=== PATIENT | female | born 1960 | race Hispanic/Latino ===

== ENCOUNTER 2018-04-13 11:04 | Emergency (ER) | payer MEDICARE, MEDICAID ==
[2018-04-13] MEDS ORDERED: Bacitracin Zinc 1 Packet ONE (12:07)
--- NOTE | 2018-04-13 12:42 | RAD ---
LEFT KNEE FOUR VIEWS: History: Injury with pain. FINDINGS: Mild degenerative changes are noted. Joint spaces are preserved. Mild degenerative spurring is noted. Deformity of the proximal fibula suggests old fracture. No acute fracture identified. There is evide nce of a joint effusion. IMPRESSION: No acute fracture identified. Joint effusion is noted. There is deformity of head of the fibula sugge sting old healed fracture. Recommend clinical correlation. POS: [facility]
== END 2018-04-13 12:10 | disposition home or self-care (01) ==
LOC: SCSER 11:04
DX: S80.02XA Contusion of left knee, initial encounter (principal); E11.9 Type 2 diabetes mellitus without complications; E78.5 Hyperlipidemia, unspecified; I10 Essential (primary) hypertension; F41.9 Anxiety disorder, unspecified; F32.9 Major depressive disorder, single episode, unspecified; Z79.899 Other long term (current) drug therapy; Z79.4 Long term (current) use of insulin; W19.XXXA Unspecified fall, initial encounter
CPT/HCPCS: 80053; 82607; 82746; 84425; 84443; 84446; 85025; 85652; 86038; 86140; 86225

== ENCOUNTER → 2018-05-10 | Day surgery (SDC) | payer MEDICARE, MEDICAID ==
[2018-05-10 10:01] LABS: CSF Source CSF; Clarity Hazy (Clear); RBC Count - Manual 1375 /cumm (None Seen); Tube # 4; WBC/NonHematics Count - Manual 1 /cumm (0-5)
[2018-05-10 10:03] LABS: CSF, Glucose 50 mg/dl (40-70); CSF, Protein 25 mg/dL (15-40)
[2018-05-10 10:42] LABS: Color Of CSF Supernatant COLORLESS (Colorless); Tube # 2; Unspun CSF Color PINK (Colorless)
--- NOTE | 2018-05-10 10:49 | RAD ---
LUMBAR PUNCTURE WITH FLUOROSCOPIC GUIDANCE: 05/10/2018 HISTORY: A 57-year-old female with possible multiple sclerosis. COMPARISON: None. FINDINGS: Informed consent obtained prior to the procedure. Frontal and lateral imaging of the lumbar spine de monstrates no acute fracture. Clips in the right upper quadrant suggest a prior cholecystectomy. The patient was placed on the fluoroscopic table in the oblique prone position, and the skin overlyin g the lumbar spine was prepped and draped in the normal sterile fashion. With intermittent fluoroscopic guidance, a 22 gauge spinal needle was advanced into the thecal sac, a t the L3-L4 level, and removal of the stylet yielded clear CSF. A total of approximately 9 mL was re moved. The opening pressure was approximately 11-12 cm of water. The patient tolerated the procedure well. IMPRESSION: Successful lumbar puncture with fluoroscopic guidance. POS: [facility]
[2018-05-10 10:58] VITALS: TEMP 97.5
[2018-05-10 14:36] LABS: Ref Lab Test Ordered ENC1
== END ==
LOC: RAD 06:37
PROVIDERS: ATTEND Psychiatry & Neurology Neurology
PROC: 009Y3ZZ Drainage of Lumbar Spinal Cord, Percutaneous Approach (ICD-10-PCS; principal; 2018-05-10)
DX: R41.89 Other symptoms and signs involving cognitive functions and awareness (principal); R26.9 Unspecified abnormalities of gait and mobility; E11.9 Type 2 diabetes mellitus without complications; I10 Essential (primary) hypertension; Z79.4 Long term (current) use of insulin; Z79.899 Other long term (current) drug therapy
CPT/HCPCS: 62270; 82040; 82042; 82784; 82945; 83916; 84157; 86592; 87070; 87205; 89051

== ENCOUNTER 2018-06-07 08:22 | Outpatient (CLI) | payer MEDICARE, MEDICAID ==
--- NOTE | 2018-06-07 12:25 | CT ---
CT OF THE CHEST WITHOUT CONTRAST CT OF THE ABDOMEN AND PELVIS WITHOUT CONTRAST: Indication: Concern for malignancy; history of abnormalities found within spinal fluid from a recent spinal tap. The patient reports falling a lot lately. Brain lesions reported supposedly on outside MR examination of the brain. Technique: Multiple CT images were obtained in the chest, abdomen, and pelvis without IV contrast. Th e lack of IV contrast limits evaluation for malignancy. FINDINGS: There are scattered areas of ground glass opacity involving both lungs. No definitely pathologically enlarged mediastinal lymph nodes are evident. The lack of IV contrast li mits evaluation for hilar lymphadenopathy. No axillary lymphadenopathy is evident. There are mild vascular calcifications involving the thoracic aorta and coronal arteries. There is a small hiatal hernia. The gallbladder is surgically absent. Lack of IV contrast limits evaluation for malignancy of the solid organs of the abdomen and pelvis. N o definite focal mass is evident. No hydronephrosis is demonstrated. There are mild vascular calcifications involving the abdominal aorta. There is a moderate amount of stool within the rectum. There is a surgical clip displaced within the retrovesicular space. There is scattered colonic diverticula. Small bowel is of normal caliber. There are a few shotty appearing lymph nodes seen within the central mesentery with some mild mesente oswaldo stranding. No free fluid is demonstrated. NO definite acute osseous abnormality is evident. IMPRESSION: 1. No definite CT evidence to suggest the presence of metastatic disease or malignancy within the joe st, abdomen, or pelvis. However, there are limitations of the examination as detailed above. 2. Scattered ground glass opacities within both lungs is likely related to subsegmental volume loss. 3. Colonic diverticulosis. 4. Cholecystectomy. 5. Displaced cholecystectomy clips suspected within the retrovesicular space of the pelvis. POS: [facility]
== END 2018-06-07 08:23 | disposition home or self-care (01) ==
LOC: RAD-BREN 08:22
PROVIDERS: ATTEND Psychiatry & Neurology Neurology
DX: C80.1 Malignant (primary) neoplasm, unspecified (principal); R91.8 Other nonspecific abnormal finding of lung field; K57.30 Diverticulosis of large intestine without perforation or abscess without bleeding; Z90.49 Acquired absence of other specified parts of digestive tract
CPT/HCPCS: 71250; 74176; 74177

== ENCOUNTER 2018-06-28 13:23 | Inpatient (IN) | payer MEDICARE, MEDICAID ==
[2018-06-28 16:46] VITALS: BMI 44.8
--- NOTE | 2018-06-28 17:26 | PET ---
RADIONUCLIDE PET SCAN WITH CT ATTENUATION CORRECTION 06/28/18 HISTORY: Abnormal CSF. Abnormal MRI. Evaluate for malignancy. FINDINGS: Physiologic uptake of radiotracer is present throughout the enteric system and along each urinary tra ct. Associated with the superficial subcutaneous tissues, favored to be subdermal, at the right axilla wh ere the superolateral fold of the right breast abuts the right axilla, a focus of increased radiotrac er uptake shows a maximum SUV of 5.2. CT images show a soft tissue oval nodule associated with the de ep dermal tissues, superficial subcutaneous tissues. At the level of the thyroid isthmus, a focus of increased radiotracer uptake shows a maximum SUV of 4 .0. No other abnormal areas of increased radiotracer uptake are evident. IMPRESSION: No reliable scintigraphic evidence of neoplastic disease. Small focus of hypermetabolic activity associated with the thyroid isthmus. Please consider thyroid s onogram for evaluation of possible thyroid mass at the isthmus. Activity associated with the superficial subcutaneous tissues at the right axillary, mammary fold is favored to be related to an inflammatory skin lesion such as a sebaceous cyst. This does not have the appearance of a breast tissue lesion. Please correlate with clinical findings at the right axilla. POS: [facility]
[2018-06-28] MEDS ORDERED: Dextrose 50% Abboject 50 ML SYRINGE SLOW IVP PRN (17:56)
[2018-06-28] MEDS ORDERED: Dextrose 5% in Water 1,000 ML IV PRN (17:56)
[2018-06-28] MEDS: Sodium Chloride 0.9% 500 ML IVPB SCH (21:36)
[2018-06-28] MEDS: Acetaminophen 500 MG TAB PO SCH (21:41)
[2018-06-28] MEDS: Insulin Regular 300 UNITS/3 ML VIAL SC PRN (21:42)
[2018-06-28] MEDS: diphenhydrAMINE 50 MG/ML VIAL IVP SCH (21:42)
[2018-06-28] MEDS: Enoxaparin Sodium 40 MG/0.4 ML SYRINGE SC SCH (21:42)
[2018-06-28] MEDS: OCTAGAM 10% 10 GM, OCTAGAM 10% 20 GM in Admixture Fee 1 EACH IVPB SCH (22:28)
[2018-06-29] MEDS: Sodium Chloride 0.9% 500 ML IVPB SCH ×2 (01:13→20:19)
[2018-06-29] MEDS: Insulin Regular 300 UNITS/3 ML VIAL SC PRN (06:31)
[2018-06-29 10:23] LABS: #Eosinphils 0.1 thou/uL (0.0-0.7); #Lymphocytes 1.2 thou/uL (1.20-3.40); #Monocytes 0.3 thou/uL (0.11-0.59); #Neutrophils 3.9 thou/uL (1.40-6.50); %Basophils 0.6 % (0.0-1.0); %Eosinophils 2.6 % (0.0-10.0); %Lymphocytes 21.6 % (21.0-51.0); %Monocytes 5.5 % (0.0-10.0); %Neutrophils 69.8 % (42.0-75.0); Hemoglobin 13.4 g/dL (12.0-16.0); Mean Corpuscular Hemoglobin 32.5 pg (27.0-31.0); Mean Corpuscular Volume 95.7 fL (78.0-98.0); Mean Platelet Volume 7.9 fL (7.4-10.4); Platelet Count 209 thou/uL (130-400); RBC Distribution Width 13.4 % (11.5-14.5); Red Blood Cell (RBC) Count 4.13 mill/uL (4.20-5.40); White Blood Cell (WBC) Count 5.6 thou/uL (4.8-10.8)
[2018-06-29 10:49] LABS: ALT (SGPT) 13 U/L (8-55); AST (SGOT) 12 U/L (5-34); Albumin 3.6 g/dL (3.5-5.0); Alkaline Phosphatase 116 U/L (40-150); Anion Gap 13 mmol/L (10-20); BUN (Urea Nitrogen) 11 mg/dL (9.8-20.1); Bilirubin, Total 0.3 mg/dL (0.2-1.2); Calc. Creatinine Clearance 135 mL/min (70-130); Calcium 9.4 mg/dL (7.8-10.44); Carbon Dioxide 27 mmol/L (22-29); Chloride 102 mmol/L (98-107); Estimated GFR-MDRD 71; Globulin 5.1 g/dL (2.4-3.5); Glucose 110 mg/dL (70-105); Potassium 3.8 mmol/L (3.5-5.1); Protein, Total 8.7 g/dL (6.0-8.3); Sodium 138 mmol/L (136-145)
[2018-06-29] MEDS ORDERED: Lorazepam 1 MG TAB PO PRN (11:12)
[2018-06-29] MEDS: HumaLOG 300 UNITS/3 ML VIAL SC SCH ×2 (11:24→17:20)
[2018-06-29] MEDS: OXcarbazepine 300 MG TAB PO SCH ×2 (11:30→20:23)
[2018-06-29] MEDS ORDERED: Amlodipine 10 MG TAB PO SCH (11:30)
[2018-06-29] MEDS ORDERED: Aspirin 325 MG TAB PO SCH (11:30)
[2018-06-29] MEDS ORDERED: Lisinopril 20 MG TAB PO SCH (11:30)
[2018-06-29] MEDS: Pioglitazone HCl 15 MG TAB PO SCH (11:30)
[2018-06-29] MEDS: TROSPIUM 20 MG TABLET PO SCH ×2 (11:31→20:24)
--- NOTE | 2018-06-29 12:14 | HP ---
DATE OF ADMISSION: 06/28/2018 REASON FOR ADMISSION: Autoimmune encephalopathy treatment. HISTORY OF PRESENT ILLNESS: Ms. Dewey is a pleasant 58-year-old female who has been admitte d for treatment for autoimmune encephalopathy. The patient was initially referred to me on 8 for evaluation of memory difficulties and gait abnormality. At that time, the patient's daughter mickie alfaro mentioned that she was having difficulty with her memory starting in 09/2017. During that time, er blood pressure and diabetes were getting uncontrolled. During that time, when daughter was checki ng on her medications, she found that the patient was not taking medications as prescribed and when taurus lindsey asked the patient whether she took them, she did not realize that she has not been taking any of the medications. She also noticed that she would not remember conversations. She would have dif ficulty with performing simple activities around the house. She required help with most of her activ ities of daily living. This has gradually gotten worse over time to the point that she was forgettin g to brush her teeth, forgetting to take shower and forgetting to eat. She had difficulty with follo wing conversations and forgetting what she wants to say. She was having difficulty with finding word s. She was speaking in both [place] and Palestinian in the past, but now she primarily speaks only Spani sh. She has also noted increasing episodes of mood swings and hallucinations where she was talking t o her father who several years ago. She tends to get agitated at times and tends to be worried about everything. She has also noticed difficulty with her gait imbalance over the several months. She would stagger and stumble while walking. She has fell on several occasions. At that time, she h ad an MRI brain done as outpatient, which had shown T2 flair white matter apparent hyperintensity as well as diffusion restriction in both cerebral hemispheres. For this reason, I had obtained autoimmu ne encephalopathy panel from [facility], which did come back positive for CASPR2 IgG antibody. I newell d received a phone call from [facility] Autoimmune Neurology fellow, Dr. Yudith Kennedy, who report ed that this is consistent with autoimmune encephalopathy. She recommended to have PET scan done to rule out malignancy as well as to start her on a trial of either IVIG or IV pulse steroids. Due to er condition of uncontrolled diabetes, she decided to opt for IVIG treatment. She is now being admit vicky for this IVIG treatment as recommended. PAST MEDICAL HISTORY: Significant for hypertension, diabetes, hyperlipidemia, depression. PAST SURGICAL HISTORY: Significant for cholecystectomy and tubal ligation. FAMILY HISTORY: Significant for heart disease, hypertension and diabetes. SOCIAL HISTORY: She denies smoking, alcohol use or illicit drug use. She is currently disabled. Josesito darling is single and has 2 children. She currently lives with her daughter. CURRENT MEDICATIONS: Include amlodipine 10 mg once a day, Crestor 10 mg once a day, insulin ____ mL solution subcutaneously, lisinopril 40 mg 1 tablet daily, lorazepam 1 mg at bedtime, Trileptal 300 mg twice a day, perphenazine 8 mg once a day, pioglitazone 30 mg once a day, sertraline 100 mg once a d ay, solifenacin 5 mg once a day, temazepam 30 mg at bedtime. ALLERGIES: Include METFORMIN from which she had developed vomiting as a side effect. REVIEW OF SYSTEMS: As mentioned in the HPI, otherwise negative. PHYSICAL EXAMINATION: VITAL SIGNS: Blood pressure of 189/79, pulse of 82, temperature of 97.4, respirations of 20, O2 sats of 95% on room air. GENERAL: Well-developed, well-nourished female, in no apparent distress. RESPIRATORY: Clear to auscultation bilaterally. CARDIOVASCULAR: Regular rate and rhythm. NEUROLOGIC: Mental status: The patient is awake, alert and oriented x1. Speech and language: Flue nt speech. Cranial nerves: Pupils are 3 mm and reactive. Visual maier are intact. External muscl es are intact. No nystagmus is noted. No ptosis noted. Sensation is intact and symmetrical. Face is symmetric with normal facial strength. Tongue and uvula are midline. Motor exam showed normal to ne and bulk with 4+/5 strength in both upper and lower extremities. Sensory: Sensation is diminishe d in both upper and lower extremities in distal to proximal gradient. Deep tendon reflexes, brisk re flexes in all 4 extremities. Babinski: Plantar responses equivocal bilaterally. Romberg is positiv e. Gait is wide based, shuffling gait. Coordination intact to [id number] and finger tapping bilaterally. IMPRESSION: 1. Autoimmune encephalopathy. 2. Gait abnormality, likely due to autoimmune encephalopathy. 3. Cognitive impairment, due to autoimmune encephalopathy. ASSESSMENT AND PLAN: Ms. Dewey is a pleasant 58-year-old female who presented with the sig nificant decline in her cognition as well as gait imbalance difficulty. She had an MRI done, which h ad shown T2 flair white matter hyperintensities in both cerebral hemispheres with restricted diffusio n in both cerebral hemispheres. Her blood work did show positive CASPR2 IgG antibody consistent with the autoimmune encephalopathy. She had CT chest, abdomen and pelvis done as outpatient, which had n ot shown any malignancy. I had done PET scan prior to this admission, which also did not show any si gn of malignancy. It did show small focus of ____ abnormal activity in the thyroid isthmus for which radiologist has recommended thyroid ultrasound. I will obtain a thyroid ultrasound as recommended b y radiologist. She is being started on IVIG treatment. She will be started on IVIG 400 mg/kg to be infused over 8 hours daily for a total of 3 doses. She will be premedicated with Tylenol 500 mg and Benadryl 25 mg IV prior to each infusion. She will also be given 500 mL normal saline before and aft er each infusion. I will consult Physical Therapy and Occupational Therapy for gait training and bobby ab evaluation. She will be placed on DVT prophylaxis with Lovenox 40 mg subcu daily. Once the patie nt is completed with 3 doses of IVIG without any complication, she will be discharged to home. She w ill have outpatient home based infusion setup to be done once every 2 weeks.
--- NOTE | 2018-06-29 13:57 | PQF ---
CLINICAL DOCUMENTATION IMPROVEMENT CLARIFICATION FORM: ICD-10 Updated PLEASE DO AN ADDENDUM TO THE PROGRESS NOTE WITH ANY DOCUMENTATION UPDATES OR ADDITIONS AND CARRY THROUGH TO DC SUMMARY. THANK YOU. DATE: 06/29 ATTN: DR. MAIDA CLEARY Please exercise your independent, professional judgment in responding to the clarification form. Clinical indicators are provided on the bottom of this form for your review. Please check appropriate box(s): BMI > 40 with associated diagnosis of: (check one) [ ] Morbid (Severe) Obesity [ ] Due to excess calories [ ] Obesity [ ] Other diagnosis [ ] Unable to determine For continuity of documentation, please document condition throughout progress notes and discharge summary. Thank You. BMI < 19 Under weight 19 - 24.9 Healthy 25.0 - 29.9 Slightly Overweight 30.0 - 34.9 Obese 35.0 - 39.9 Severely Obese 40.0 and Over Morbidly Obese CLINICAL INDICATORS - SIGNS / SYMPTOMS / LABS BMI: 45.6 RISK FACTORS: DM II HTN TREATMENTS: ASSISTANCE OF [facility] STAFF FOR ADL'S, POSITIONING IN BED, TRANSFERS, ETC EXTRA LARGE EQUIPMENT - WC, BED, BP CUFF THANK YOU! Moraima (This form is maintained as a part of the permanent medical record) 2014 [employer]. All Rights Reserved Moraima Ramirez RN, BSN [email or web address] Office: [phone] [facility] HOSPITALSreedhar
--- NOTE | 2018-06-29 15:06 | ULT ---
THYROID ULTRASOUND: HISTORY: Thyroid abnormality. COMPARISON: FINDINGS: measures 1.5 cm in AP dimension. Right lobe measures 5.3 x 3.1 x 2.2 cm. Left lobe measures 4.6 x 3 x 2.3 cm. Within the isthmus is a solid, mixed hyperechoic and hypoechoic mass, which is wi nory than tall, with somewhat ill defined margins without associated calcifications. TI-RADS category 4-Moderately suspicious. Given the size of size of 1.3 cm, followup in six months to one year is recommended. IMPRESSION: TI-RADS 4 nodule in the isthmus. Follow up in six months to one year is recommended. POS: [facility]
[2018-06-29] MEDS ORDERED: Acetaminophen 500 MG TAB PO PRN (20:15)
[2018-06-29] MEDS ORDERED: hydrALAZINE 20 MG/ML VIAL SLOW IVP PRN (20:15)
[2018-06-29] MEDS: Acetaminophen 500 MG TAB PO SCH (20:20)
[2018-06-29] MEDS: diphenhydrAMINE 50 MG/ML VIAL IVP SCH (20:21)
[2018-06-29] MEDS: Enoxaparin Sodium 40 MG/0.4 ML SYRINGE SC SCH (20:21)
[2018-06-29] MEDS: Rosuvastatin 5 MG TAB PO SCH (20:23)
[2018-06-29] MEDS: Perphenazine 2 MG TAB PO SCH (20:23)
[2018-06-29] MEDS: traZODone HCl 150 MG TAB PO SCH (20:24)
[2018-06-29] MEDS: OCTAGAM 10% 10 GM, OCTAGAM 10% 20 GM in Admixture Fee 1 EACH IVPB SCH (21:24)
--- NOTE | 2018-06-29 23:30 | PRG ---
DATE OF SERVICE: 06/29/2018 SUBJECTIVE: Ms. Dewey is a pleasant 58-year-old female admitted for IVIG treatment for auto immune encephalopathy. She has received 1 dose of IVIG. She has tolerated the IVIG well without any complications. She did have mild headache with elevation in blood pressure last night; however, anurag t has now been resolved. She did not require any IV p.r.n., antihypertensive medication at that time . PHYSICAL EXAMINATION: VITAL SIGNS: Blood pressure of 183/80, pulse of 77, temperature of 99, respirations of 18, O2 sats o f 92% on room air. GENERAL: Well-developed, well-nourished female in no apparent distress. RESPIRATORY: Clear to auscultation bilaterally. CARDIOVASCULAR: Regular rate and rhythm. NEUROLOGIC: Neurological exam essentially unchanged. DIAGNOSTIC STUDIES: Thyroid ultrasound results were reviewed, which showed 4 nodules in the isthmus of the thyroid reviewed (01:49) recommended to repeating the thyroid ultrasound in 6 months. LABORATORY DATA: Labs are reviewed, which included CBC, CMP, TSH, which is all essentially normal ex cept glucose of 134. IMPRESSION: 1. Autoimmune encephalopathy. 2. Gait abnormality, due to #1. 3. Cognitive impairment, due to #1. Ms. Dewey is a pleasant 58-year-old female who was admitted for treatment with IVIG for auto immune encephalopathy. She has tolerated the first dose of IVIG well without any complications. She did have mild elevation in the blood pressure for which I will start her on hydralazine 5 mg IV q.4 hours p.r.n. for systolic blood pressure greater than 180. She will be given Tylenol 500 mg q.4 hour s p.r.n. for headache. Patient will continue with PT, OT, and she will have a second and third round of IVIG today and tomorrow, respectively.
[2018-06-30] MEDS: Sodium Chloride 0.9% 500 ML IVPB SCH ×2 (05:30→20:06)
[2018-06-30] MEDS: OXcarbazepine 300 MG TAB PO SCH ×2 (09:26→20:07)
[2018-06-30] MEDS: TROSPIUM 20 MG TABLET PO SCH ×2 (09:26→20:06)
[2018-06-30] MEDS: Pioglitazone HCl 15 MG TAB PO SCH (09:26)
[2018-06-30] MEDS: HumaLOG 300 UNITS/3 ML VIAL SC SCH ×3 (09:26→17:23)
[2018-06-30] MEDS: Aspirin 325 MG TAB PO SCH (09:27)
[2018-06-30] MEDS: Amlodipine 10 MG TAB PO SCH (09:27)
[2018-06-30] MEDS: Lisinopril 20 MG TAB PO SCH (09:27)
[2018-06-30] MEDS: Insulin Regular 300 UNITS/3 ML VIAL SC PRN ×2 (11:38→15:46)
[2018-06-30] MEDS: diphenhydrAMINE 50 MG/ML VIAL IVP SCH (20:05)
[2018-06-30] MEDS: Acetaminophen 500 MG TAB PO SCH (20:05)
[2018-06-30] MEDS: Perphenazine 2 MG TAB PO SCH (20:07)
[2018-06-30] MEDS: traZODone HCl 150 MG TAB PO SCH (20:07)
[2018-06-30] MEDS: Rosuvastatin 5 MG TAB PO SCH (20:07)
[2018-06-30] MEDS: Enoxaparin Sodium 40 MG/0.4 ML SYRINGE SC SCH (20:16)
[2018-06-30] MEDS: OCTAGAM 10% 10 GM, OCTAGAM 10% 20 GM in Admixture Fee 1 EACH IVPB SCH (21:58)
[2018-07-01] MEDS: Sodium Chloride 0.9% 500 ML IVPB SCH (05:20)
[2018-07-01 07:42] VITALS: BP 148/83; TEMP 98.3
[2018-07-01] MEDS: HumaLOG 300 UNITS/3 ML VIAL SC SCH ×3 (08:10→19:27)
[2018-07-01] MEDS: TROSPIUM 20 MG TABLET PO SCH (08:11)
[2018-07-01] MEDS: OXcarbazepine 300 MG TAB PO SCH (08:11)
[2018-07-01] MEDS: Amlodipine 10 MG TAB PO SCH (08:11)
[2018-07-01] MEDS: Pioglitazone HCl 15 MG TAB PO SCH (08:12)
[2018-07-01] MEDS: Aspirin 325 MG TAB PO SCH (08:12)
[2018-07-01] MEDS: Lisinopril 20 MG TAB PO SCH (08:12)
== END 2018-07-01 18:16 | disposition home or self-care (01) | DRG 72 ==
LOC: PET 13:23 → ONC 15:52
PROVIDERS: ADMIT Psychiatry & Neurology Neurology; ATTEND Psychiatry & Neurology Neurology
DX: G93.49 Other encephalopathy (principal); C80.1 Malignant (primary) neoplasm, unspecified; E11.9 Type 2 diabetes mellitus without complications; Z79.4 Long term (current) use of insulin; I10 Essential (primary) hypertension; E78.5 Hyperlipidemia, unspecified; F32.9 Major depressive disorder, single episode, unspecified; G31.84 Mild cognitive impairment of uncertain or unknown etiology
CPT/HCPCS: 36415; 36416; 76536; 78815; 80053; 84443; 85025; A4216; A9552; G8978-GP-CL; G8979-GP-CJ; G8987-GO-CM; G8988-GO-CJ; J0360; J1200; J1568; J1650; J1815; J7050; Q0175

== ENCOUNTER 2019-11-02 00:45 | Inpatient (IN) | payer MEDICARE, MEDICAID ==
[2019-11-02] MEDS ORDERED: Acetaminophen 325 MG TAB PO PRN (04:05)
[2019-11-02] MEDS ORDERED: Ondansetron ODT 4 MG TAB SL PRN (04:05)
[2019-11-02] MEDS ORDERED: Ondansetron PF 4 MG/2 ML Vial IVP PRN ×2 (04:05→08:42)
[2019-11-02 04:07] VITALS: BMI 43.9
[2019-11-02] MEDS ORDERED: Sodium Chloride 0.9% 1,000 ML IV SCH (04:15)
[2019-11-02] MEDS ORDERED: Lorazepam 1 MG TAB PO PRN (08:39)
[2019-11-02] MEDS ORDERED: HYDROcodone/Acetaminophen 7.5/325 mg Tablet PO PRN (08:42)
[2019-11-02] MEDS ORDERED: HYDROcodone/Acetaminophen 5/325 mg Tablet PO PRN (08:42)
[2019-11-02] MEDS ORDERED: Ondansetron ODT 4 MG TAB PO PRN (08:42)
[2019-11-02] MEDS ORDERED: Dextrose 5% in Water 1,000 ML IV PRN (08:46)
[2019-11-02] MEDS ORDERED: Dextrose 50% Abboject 50 ML SYRINGE SLOW IVP PRN (08:46)
[2019-11-02] MEDS ORDERED: Docusate 100 MG CAP PO PRN (08:47)
[2019-11-02] MEDS ORDERED: Benzonatate 100 MG CAP PO PRN (08:47)
[2019-11-02] MEDS ORDERED: diphenhydrAMINE 25 MG CAP PO PRN (08:47)
[2019-11-02] MEDS ORDERED: Labetalol HCl 100 MG/20 ML VIAL SLOW IVP PRN (08:47)
[2019-11-02] MEDS ORDERED: Amlodipine 10 MG TAB PO SCH (09:00)
[2019-11-02] MEDS ORDERED: Non-Formulary Item 1 EACH (Lisinopril [Lisinopril] 1 TAB) PO SCH (09:00)
[2019-11-02] MEDS ORDERED: OXcarbazepine 300 MG TAB PO SCH ×2 (09:00)
[2019-11-02] MEDS: Aspirin 325 MG TAB PO SCH (09:36)
[2019-11-02] MEDS: Lisinopril 20 MG TAB PO SCH (09:36)
[2019-11-02] MEDS: Famotidine 20 MG TAB PO SCH ×2 (09:37→22:06)
[2019-11-02 10:20] LABS: Anion Gap 14 mmol/L (10-20); BUN (Urea Nitrogen) 21 mg/dL (9.8-20.1); Calc. Creatinine Clearance 88 mL/min (70-130); Calcium 8.4 mg/dL (7.8-10.44); Carbon Dioxide 21 mmol/L (22-29); Chloride 104 mmol/L (98-107); Estimated GFR-MDRD 46; Glucose 203 mg/dL (70-105); Potassium 4.2 mmol/L (3.5-5.1); Sodium 135 mmol/L (136-145)
[2019-11-02] MEDS ORDERED: FLU VACC QS2019-20(6MOS UP)/PF 60 MCG/0.5 ML SYRINGE IM ONE (11:00)
[2019-11-02 11:31] LABS: Band 10 % (5-11); Lymphocytes 13 % (21-51); MDiff Complete? YES; Mean Corpuscular HGB CONC 33.2 g/dL (32.0-36.0); Mean Corpuscular Hemoglobin 31.5 pg (27.0-31.0); Mean Corpuscular Volume 94.9 fL (78.0-98.0); Mean Platelet Volume 9.3 fL (7.4-10.4); Monocytes 1 % (0-10); Neutrophil 76 % (42-75); Platelet Count 226 thou/uL (130-400); RBC Morphology Normal; Red Blood Cell (RBC) Count 4.14 mill/uL (4.20-5.40); White Blood Cell (WBC) Count 18.8 thou/uL (4.8-10.8)
[2019-11-02] MEDS: cefTRIAXone\\ROCEPHIN 2 GM in Sodium Chloride 0.9% 100 ML IVPB SCH (12:28)
[2019-11-02] MEDS: HumaLOG 300 UNITS/3 ML VIAL SC PRN ×2 (12:30→18:58)
--- NOTE | 2019-11-02 13:57 | MRI ---
MRI BRAIN WITHOUT CONTRAST: HISTORY: Vertigo, CVA symptoms FINDINGS: A couple of tiny foci of restricted diffusion is seen in the right cerebral hemisphere involving the periventricular and subcortical white matter. There are multiple foci of T2 prolongation in the periventricular white matter, consistent with chronic small vessel ischemic disease. The ventricular size is appropriate and the basilar cisterns are patent. No evidence of acute transcortical infarct, hemorrhage, midline shift or abnormal extra-axial fluid c ollections is seen. IMPRESSION: A couple of tiny acute lacunar infarctions in the right cerebral hemisphere.
--- NOTE | 2019-11-02 15:17 | PDOC.HHP ---
Hospitalist HPI - History of Present Illness Left sided weakness History of Present Illness: 59-year-old female with past medical history of CVA, insulin-dependent diabetes mellitus, hypertension, hyperlipidemia, mood disorder, and history of seizures presents with left-sided weakness and urinary tract infection symptoms. Patient was transferred from [place] for higher level of care for sepsis and left-sided weakness concerning for CVA. I discussed the case with patient's surrogate decision-maker Mary and family at bedside. Patient has had two days of worsening urinary tract infection symptoms with increase frequency and urgency of urination. Patient denies pain with or burning with with urination. Emergency department physician appreciated left-sided weakness and the patient was transferred for higher level of care. I find the patient on the medical unit she is in no apparent distress and her neurologic symptoms have resolved. Patient is talking in full sentences. Patient's left-sided weakness has resolved. Patient's family states that she is at her baseline. Patient is slow to answer some questions though is able to answer all questions appropriately. Patient and her daughter state that she had been doing much better over the past year since her medications have been adjusted and she no longer takes psychiatric medications for schizophrenia or seizure medications. Patient's diabetes is better controlled on combination of long and short acting insulin. I ordered an MRI of the brain which does demonstrate very small right-sided lacunar infarcts of acute chronicity. Patient with urinary tract infection on admission with the BBC count of 18,000 diagnosed with sepsis on admission. Patient transferred to stroke unit for further evaluation and treatment. Hospitalist ROS - Review of Systems All other systems reviewed; all pertinent +/- noted in HPI/Subj - Medication Medications: Active Medications Generic Name Dose Route Start Last Admin Trade Name Freq PRN Reason Stop Dose Admin Aspirin 325 mg 11/02/19 09:00 11/02/19 09:36 Aspirin PO 325 mg DAILY ISRA Administration Famotidine 20 mg 11/02/19 09:00 11/02/19 09:37 Pepcid PO 20 mg BID ISRA Administration Ceftriaxone Sodium 2 gm/ 100 mls @ 200 mls/hr 11/02/19 12:00 11/02/19 12:28 Sodium Chloride IVPB 100 mls 1200 ISRA Administration Insulin Human Lispro 0 units 11/02/19 08:46 11/02/19 12:30 Humalog SC 6 unit .MILD SLIDING SCALE PRN Administration Mild Correctional Scale Lisinopril 40 mg 11/02/19 09:00 11/02/19 09:36 Zestril PO 40 mg DAILY ISRA Administration Sodium Chloride 10 ml 11/02/19 09:00 11/02/19 09:37 Flush - Normal Saline IVF 10 ml Q12HR ISRA Administration Hospitalist History - Past Medical History Source: patient, family Cardiac: reports: HTN, Hyperlipidemia Pulmonary: reports: CVA/TIA/stroke, high cholesterol, hypertension [employer]PER[employer]: reports: CVA, Seizure, TIA Psych: reports: Other (Mood disorder) - Family History Family History: reports: hyperlipidemia, hypertension - Social History Smoking Status: Unknown if ever smoked Alcohol: reports: None Drugs: reports: none Living Situation: With Family Domestic Violence: Negative Activity level: uses cane/walker - Exam General Appearance: NAD, awake alert Eye: PERRL, anicteric sclera ENT: normocephalic atraumatic, moist mucosa Neck: supple Heart: RRR, no murmur, no gallops Respiratory: CTAB, no wheezes, normal chest expansion Gastrointestinal: soft, non-tender, non-distended, normal bowel sounds, no splenomegaly Extremities: no edema Skin: negative: tenting (No cellulitis evident LE) Skin - other findings: Chronic venous stasis dermatitis LE bilaterally with flaking scaling skin. Neurological: cranial nerve grossly intact, normal sensation to touch, no weakness, no focal deficits Musculoskeletal: generalized weakness Psychiatric: normal behavior, A&O x 3, flat affect Hospitalist Results - Labs Result Diagrams: 11/02/19 09:35 11/02/19 09:35 Lab results: WBC 18.8 thou/uL (4.8-10.8) H 11/02/19 09:35 Hgb 13.0 g/dL (12.0-16.0) 11/02/19 09:35 Hct 39.3 % (36.0-47.0) 11/02/19 09:35 MCV 94.9 fL (78.0-98.0) 11/02/19 09:35 Plt Count 226 thou/uL (130-400) 11/02/19 09:35 Band Neuts % (Manual) 10 % (5-11) 11/02/19 09:35 Sodium 135 mmol/L (136-145) L 11/02/19 09:35 Potassium 4.2 mmol/L (3.5-5.1) 11/02/19 09:35 Chloride 104 mmol/L (98-107) 11/02/19 09:35 Carbon Dioxide 21 mmol/L (22-29) L 11/02/19 09:35 BUN 21 mg/dL (9.8-20.1) H 11/02/19 09:35 Creatinine 1.21 mg/dL (0.6-1.1) H 11/02/19 09:35 Glucose 203 mg/dL (70-105) H 11/02/19 09:35 Calcium 8.4 mg/dL (7.8-10.44) 11/02/19 09:35 - Radiology Interpretation MRI - head Status: image reviewed by ar Hospitalist H&P A/P - Problem (1) Acute CVA (cerebrovascular accident) Code(s): I63.9 - CEREBRAL INFARCTION, UNSPECIFIED Status: Acute (2) IDDM (insulin dependent diabetes mellitus) Code(s): E11.9 - TYPE 2 DIABETES MELLITUS WITHOUT COMPLICATIONS; Z79.4 - FISH AND WILDLIFE BIOLOGIST (CURRENT) USE OF INSULIN Status: Acute (3) HTN (hypertension) Code(s): I10 - ESSENTIAL (PRIMARY) HYPERTENSION Status: Acute (4) HLD (hyperlipidemia) Code(s): E78.5 - HYPERLIPIDEMIA, UNSPECIFIED Status: Acute (5) Mood disorder Code(s): F39 - UNSPECIFIED MOOD [AFFECTIVE] DISORDER Status: Acute (6) Sepsis Code(s): A41.9 - SEPSIS, UNSPECIFIED ORGANISM Status: Acute (7) UTI (urinary tract infection) Status: Acute - Plan Plan: Plan: Admit to stroke unit neurology consultation requested for stroke, recommendations appreciated stroke regimen: -aspirin -CAROLYN inhibitor -statin echocardiogram ultrasound of the carotid IV antibiotics for urinary tract infection urine culture de-escalate to culture and sensitivity as able blood pressure control blood sugar control with long and short acting insulin we do not carry her formulary of long-acting insulin I will transition to what we have available in- house DVT prophylaxis G.I. prophylaxis
--- NOTE | 2019-11-02 16:52 | ULT ---
BILATERAL CAROTID DUPLEX ULTRASOUND: HISTORY: CVA TECHNIQUE: Grayscale, color-flow and spectral Doppler ultrasound imaging of the extracranial carotid artery syst ems was performed bilaterally. FINDINGS: No significant plaque formation or intimal wall thickening is seen The peak systolic velocity in the right ICA measures 63 cm/s with an end-diastolic velocity of 9 cm/s and a systolic ratio of 0.61. The peak systolic velocity in the left ICA measures 70 cm/s with an end-diastolic velocity of 21 cm/s and a systolic ratio of 0.41. Flow in both vertebral arteries remains antegrade. IMPRESSION: No evidence of hemodynamically significant stenosis in either ICA
[2019-11-02] MEDS ORDERED: Aggrenox 200-25mg CAP PO SCH (18:30)
[2019-11-02] MEDS ORDERED: Perphenazine 2 MG TAB PO SCH (21:00)
[2019-11-02] MEDS ORDERED: PERPHENAZINE 8 MG PO SCH (21:00)
[2019-11-02] MEDS ORDERED: Rosuvastatin 10 MG TAB PO SCH (21:00)
[2019-11-02] MEDS ORDERED: Metoprolol Tartrate 50 MG TAB PO SCH (21:00)
[2019-11-02] MEDS: traZODone HCl 150 MG TAB PO SCH (22:06)
[2019-11-02] MEDS: Acetaminophen 325 MG TAB PO PRN (22:06)
[2019-11-02] MEDS: Rosuvastatin 5 MG TAB PO SCH (22:06)
[2019-11-02] MEDS: Insulin Glargine 10 UNITS in Pre-Filled Syringe 1 EACH SC SCH (22:07)
--- NOTE | 2019-11-03 00:06 | CON ---
DATE OF CONSULTATION: 11/02/2019 CONSULTING PHYSICIAN: Hospitalist Service IMPRESSION: 1. Lacunar infarctions. 2. Transient confusion. 3. History of autoimmune encephalitis. 4. Diabetes. 5. Hypertension. 6. Aspirin failure. PLAN: 1. Add Aggrenox 1 twice a day. 2. Monitor clinical course. HISTORY OF PRESENT ILLNESS: Ms. eDwey is a 59-year-old female who was previously seen by Dr. Paz. He diagnosed her with autoimmune encephalitis back in 2018. 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 She was treated with IVIG for a few months. This was not followed up and she discontinued treatment back in 2018. She has not had any further neurologic problems since then. She presented with complaints of feeling dizzy and a bit confused. She was found to have evidence of urinary tract infection. She had an MRI of the brain, which showed 2 punctate areas of acute ischemia. She has had a carotid ultrasound and an echocardiogram is pending; the results are pending on both. She reported being compliant with her medications including aspirin prior to admission. PAST MEDICAL HISTORY: Diabetes, hypertension. ALLERGIES: METFORMIN. SOCIAL HISTORY: No tobacco use. FAMILY HISTORY: Noncontributory. REVIEW OF SYSTEMS: 10-system review of systems is otherwise negative. PHYSICAL EXAMINATION: GENERAL: She is overweight middle-aged woman, lying in bed, in no acute distress. VITAL SIGNS: Have been stable. She is afebrile. HEENT: Pupils equal. Conjunctivae clear. Oropharynx clear. Cranium normocephalic and atraumatic. NECK: Supple. EXTREMITIES: No cyanosis or edema. NEUROLOGIC: She was alert and cooperative. Her speech was fluent and clear. Cranial nerves 2 through 12 were intact. Motor exam showed equal egg processor strength. Sensation was intact to light touch. No abnormal movements were seen. She walks with the use of a walker. LABORATORY DATA: Prior to her admission, she had a CBC and serum chemistries and a urinalysis, nothing remarkable was found otherwise. Her white count was 16.4. CT of the brain and CTA were normal. EKG is not present in the chart. SUMMARY: This is a middle-aged woman with history of hypertension and diabetes. She appears to have some lacunar infarction occur, which is more likely related to her chronic illness rather than instead an encephalitis. She has never had any seizures or other cortical involvement based on the imaging. I am a bit skeptical that she needs any continued treatment in this regard. I would be happy to follow her as an outpatient. Job ID: [id number]
[2019-11-03 05:51] LABS: #Eosinphils 0.1 thou/uL (0.0-0.7); #Lymphocytes 2.2 thou/uL (1.20-3.40); #Monocytes 0.5 thou/uL (0.11-0.59); #Neutrophils 8.2 thou/uL (1.40-6.50); %Basophils 0.2 % (0.0-1.0); %Eosinophils 0.7 % (0.0-10.0); %Lymphocytes 20.2 % (21.0-51.0); %Monocytes 4.4 % (0.0-10.0); %Neutrophils 74.6 % (42.0-75.0); Hemoglobin 12.1 g/dL (12.0-16.0); Mean Corpuscular HGB CONC 32.5 g/dL (32.0-36.0); Mean Corpuscular Hemoglobin 30.7 pg (27.0-31.0); Mean Corpuscular Volume 94.4 fL (78.0-98.0); Mean Platelet Volume 8.5 fL (7.4-10.4); Platelet Count 214 thou/uL (130-400); RBC Distribution Width 12.8 % (11.5-14.5); Red Blood Cell (RBC) Count 3.96 mill/uL (4.20-5.40)
[2019-11-03 06:12] LABS: Anion Gap 10 mmol/L (10-20); BUN (Urea Nitrogen) 23 mg/dL (9.8-20.1); Calc. Creatinine Clearance 100 mL/min (70-130); Calcium 8.3 mg/dL (7.8-10.44); Carbon Dioxide 24 mmol/L (22-29); Chloride 106 mmol/L (98-107); Estimated GFR-MDRD 53; Glucose 227 mg/dL (70-105); Potassium 4.2 mmol/L (3.5-5.1); Sodium 136 mmol/L (136-145)
[2019-11-03] MEDS: HumaLOG 300 UNITS/3 ML VIAL SC PRN ×3 (06:39→18:11)
[2019-11-03] MEDS: Aggrenox 200-25mg CAP PO SCH (09:24)
[2019-11-03] MEDS: Lisinopril 20 MG TAB PO SCH (09:24)
[2019-11-03] MEDS: Carvedilol 6.25 MG TAB PO SCH ×2 (09:24→16:01)
[2019-11-03] MEDS: Famotidine 20 MG TAB PO SCH ×2 (09:24→20:29)
[2019-11-03] MEDS: Insulin Glargine 10 UNITS in Pre-Filled Syringe 1 EACH SC SCH ×2 (09:24→20:29)
[2019-11-03] MEDS: Aspirin 325 MG TAB PO SCH (10:09)
[2019-11-03] MEDS: cefTRIAXone\\ROCEPHIN 2 GM in Sodium Chloride 0.9% 100 ML IVPB SCH (12:36)
[2019-11-03] MEDS: Acetaminophen 325 MG TAB PO PRN ×2 (12:36→19:56)
--- NOTE | 2019-11-03 14:05 | PDOC.HOSPP ---
- Subjective Subjective: Seen and examined. Patient clinically improving. She is starting the field back to herself. Urinary tract infection responding to current antibiotics with drowned trend of WBC count from 18,000 to 11,000 normalizing. Patient left arm and leg her feeling strong. Patient having no dysarthria or confusion. Blood pressure issues, adjusting medications. Overall patient is improving on maximal medical therapy. - Objective Vital Signs & Weight: Vital Signs (12 hours) Temp Pulse Pulse Resp BP BP BP 11/03/19 12:40 11/03/19 11:48 98.7 F 70 20 11/03/19 11:24 73 177/81 H 174/89 H 11/03/19 10:12 11/03/19 09:24 200/92 H 11/03/19 07:47 97.5 F L 60 14 11/03/19 03:55 97.6 F 51 L 18 BP Pulse Ox 11/03/19 12:40 170/84 H 11/03/19 11:48 177/81 H 93 L 11/03/19 11:24 11/03/19 10:12 159/83 H 11/03/19 09:24 11/03/19 07:47 148/80 H 94 L 11/03/19 03:55 142/75 H 93 L Weight Weight 240 lb I&O: 11/02/19 11/03/19 11/04/19 06:59 06:59 06:59 Intake Total 200 Balance 200 Result Diagrams: 11/03/19 04:56 11/03/19 04:56 Additional Labs: Accuchecks 11/03/19 11/03/19 11/02/19 10:41 06:14 19:55 POC Glucose 268 H 218 H 207 H 11/02/19 17:43 POC Glucose 181 H Radiology Reviewed by me: Yes Hospitalist ROS - Review of Systems All other systems reviewed; all pertinent +/- noted in HPI/Subj - Medication Medications: Active Medications Generic Name Dose Route Start Last Admin Trade Name Freq PRN Reason Stop Dose Admin Acetaminophen 650 mg 11/02/19 08:42 11/03/19 12:36 Tylenol PO 650 mg Q4H PRN Administration Headache/Fever/Mild Pain (1-3) Carvedilol 6.25 mg 11/03/19 08:00 11/03/19 09:24 Coreg PO 6.25 mg BID-WM ISRA Administration Dipyridamole/Aspirin 1 cap 11/03/19 09:00 11/03/19 09:24 Aggrenox PO 11/05/19 09:01 1 cap DAILY ISRA Administration Famotidine 20 mg 11/02/19 09:00 11/03/19 09:24 Pepcid PO 20 mg BID ISRA Administration Ceftriaxone Sodium 2 gm/ 100 mls @ 200 mls/hr 11/02/19 12:00 11/03/19 12:36 Sodium Chloride IVPB 100 mls 1200 ISRA Administration Insulin Glargine 10 units/ 0.1 mls @ 0 mls/hr 11/02/19 21:00 11/03/19 09:24 Miscellaneous Medication SC 0.1 mls BID ISRA Administration Insulin Human Lispro 0 units 11/02/19 08:46 11/03/19 12:36 Humalog SC 4 unit .MILD SLIDING SCALE PRN Administration Mild Correctional Scale Lisinopril 40 mg 11/02/19 09:00 11/03/19 09:24 Zestril PO 40 mg DAILY ISRA Administration Lorazepam 0.5 mg 11/02/19 08:39 11/02/19 22:10 Ativan PO 0.5 mg BID PRN Administration Anxiety Rosuvastatin Calcium 5 mg 11/02/19 21:00 11/02/19 22:06 Crestor PO 5 mg HS ISRA Administration Sodium Chloride 10 ml 11/02/19 09:00 11/03/19 09:25 Flush - Normal Saline IVF 10 ml Q12HR ISRA Administration Trazodone HCl 150 mg 11/02/19 21:00 11/02/19 22:06 Desyrel PO 150 mg HS ISRA Administration - Exam General Appearance: NAD, awake alert Eye: PERRL ENT: normocephalic atraumatic, moist mucosa Neck: supple, symmetric Heart: no murmur, no gallops, no rubs Respiratory: CTAB, no wheezes, no rales, no ronchi Gastrointestinal: soft, non-tender, non-distended, no guarding, no rigidity Extremities: 1+ LE edema Skin - other findings: LE dry scabbed lesions are in stage of healing. Neurological: cranial nerve grossly intact, no weakness, no focal deficits. negative: facial droop, hemiplegia Musculoskeletal: generalized weakness Psychiatric: normal behavior, A&O x 3, flat affect Hosp A/P (1) Acute CVA (cerebrovascular accident) Code(s): I63.9 - CEREBRAL INFARCTION, UNSPECIFIED Status: Acute (2) IDDM (insulin dependent diabetes mellitus) Code(s): E11.9 - TYPE 2 DIABETES MELLITUS WITHOUT COMPLICATIONS; Z79.4 - CORRECTION (CURRENT) USE OF INSULIN Status: Acute (3) HTN (hypertension) Code(s): I10 - ESSENTIAL (PRIMARY) HYPERTENSION Status: Acute (4) HLD (hyperlipidemia) Code(s): E78.5 - HYPERLIPIDEMIA, UNSPECIFIED Status: Acute (5) Mood disorder Code(s): F39 - UNSPECIFIED MOOD [AFFECTIVE] DISORDER Status: Acute (6) Sepsis Code(s): A41.9 - SEPSIS, UNSPECIFIED ORGANISM Status: Acute (7) UTI (urinary tract infection) Status: Acute - Plan Plan: medical unit with telemetry stroke unit neurology consultation requested for stroke, recommendations appreciated stroke regimen: -Aggrenox -CAROLYN inhibitor -statin echocardiogram noted for preserved ejection fraction 55% without significant valvular pathology ultrasound carotid neg for hemodynamically significant stenosis MRI brain noted for acute CVA - see report for details IV antibiotics for urinary tract infection urine culture De-escalate to culture and sensitivity as able blood pressure control blood sugar control with long and short acting insulin, responding well to current regimen PT/OT evaluation and treatment DVT prophylaxis G.I. prophylaxis
--- NOTE | 2019-11-03 14:35 | PDOC.EVN ---
Event Note - Event Note Event Note: Called daughter Anai twice at [phone] with attempt to give status update. No answere, voicemail left. I will attempt to contact later to give updates.
[2019-11-03] MEDS ORDERED: cloNIDine 0.1 MG TAB PO PRN (17:25)
[2019-11-03] MEDS: hydrALAZINE 20 MG/ML VIAL SLOW IVP PRN (18:11)
[2019-11-03] MEDS: traZODone HCl 150 MG TAB PO SCH (20:27)
[2019-11-03] MEDS: Rosuvastatin 5 MG TAB PO SCH (20:28)
[2019-11-03] MEDS: Melatonin 3 MG TAB PO PRN (20:29)
[2019-11-03] MEDS ORDERED: hydrALAZINE 25 MG TAB PO SCH (21:00)
[2019-11-04] MEDS: HumaLOG 300 UNITS/3 ML VIAL SC PRN ×4 (06:30→22:03)
[2019-11-04] MEDS ORDERED: Carvedilol 6.25 MG TAB PO SCH (07:51)
[2019-11-04] MEDS: Aggrenox 200-25mg CAP PO SCH (08:54)
[2019-11-04] MEDS: hydrALAZINE 25 MG TAB PO SCH ×3 (08:54→21:52)
[2019-11-04] MEDS: Lisinopril 20 MG TAB PO SCH (08:54)
[2019-11-04] MEDS: Famotidine 20 MG TAB PO SCH ×2 (08:55→21:52)
[2019-11-04] MEDS: Insulin Glargine 10 UNITS in Pre-Filled Syringe 1 EACH SC SCH ×2 (08:56→21:52)
[2019-11-04] MEDS: Carvedilol 3.125 MG TAB PO SCH ×2 (08:57→16:49)
[2019-11-04] MEDS: cefTRIAXone\\ROCEPHIN 2 GM in Sodium Chloride 0.9% 100 ML IVPB SCH (11:29)
--- NOTE | 2019-11-04 13:55 | PDOC.HOSPP ---
- Subjective Subjective: Patient seen and examined. Clinically improving on maximal medical therapy. Left -sided motor deficits are resolved completely. No facial asymmetries are appreciated. Bladder infection symptoms improving. Patient tolerating diet. Blood pressure remains difficult control. Patient has been on amlodipine in the past which was very effective in controlling blood pressure, however she had severe lower extremity edema and this medication has been stopped and edema has resolved. I have added hydralazine scheduled to her regimen to help control her blood pressure better. Patient's heart rate has been on the low side I've had to decrease her beta kiersten. - Objective Vital Signs & Weight: Vital Signs (12 hours) Temp Pulse Resp BP BP Pulse Ox 11/04/19 12:03 98.1 F 68 20 93 L 11/04/19 08:54 71 159/90 H 11/04/19 07:32 98.3 F 71 20 159/90 H 95 11/04/19 04:00 97.5 F L 50 L 20 144/68 H 94 L Weight Weight 240 lb I&O: 11/03/19 11/04/19 11/05/19 06:59 06:59 06:59 Intake Total 1100 Balance 1100 Result Diagrams: 11/03/19 04:56 11/03/19 04:56 Additional Labs: Accuchecks 11/04/19 11/04/19 11/03/19 10:50 06:13 20:27 POC Glucose 232 H 240 H 243 H 11/03/19 16:51 POC Glucose 230 H Radiology Reviewed by me: Yes Hospitalist ROS - Review of Systems All other systems reviewed; all pertinent +/- noted in HPI/Subj - Medication Medications: Active Medications Generic Name Dose Route Start Last Admin Trade Name Freq PRN Reason Stop Dose Admin Acetaminophen 650 mg 11/02/19 08:42 11/03/19 19:56 Tylenol PO 650 mg Q4H PRN Administration Headache/Fever/Mild Pain (1-3) Carvedilol 3.125 mg 11/04/19 08:00 11/04/19 08:57 Coreg PO 3.125 mg BID-WM ISRA Administration Dipyridamole/Aspirin 1 cap 11/03/19 09:00 11/04/19 08:54 Aggrenox PO 11/05/19 09:01 1 cap DAILY ISRA Administration Famotidine 20 mg 11/02/19 09:00 11/04/19 08:55 Pepcid PO 20 mg BID ISRA Administration Hydralazine HCl 10 mg 11/03/19 17:23 11/03/19 18:11 Apresoline SLOW IVP 10 mg Q4H PRN Administration Hypertension Hydralazine HCl 50 mg 11/04/19 09:00 11/04/19 08:54 Apresoline PO 50 mg TID ISRA Administration Ceftriaxone Sodium 2 gm/ 100 mls @ 200 mls/hr 11/02/19 12:00 11/04/19 11:29 Sodium Chloride IVPB 100 mls 1200 ISRA Administration Insulin Glargine 10 units/ 0.1 mls @ 0 mls/hr 11/02/19 21:00 11/04/19 08:56 Miscellaneous Medication SC 0.1 mls BID ISRA Administration Insulin Human Lispro 0 units 11/02/19 08:46 11/04/19 11:29 Humalog SC 3 unit .MILD SLIDING SCALE PRN Administration Mild Correctional Scale Lisinopril 40 mg 11/02/19 09:00 11/04/19 08:54 Zestril PO 40 mg DAILY ISRA Administration Lorazepam 0.5 mg 11/02/19 08:39 11/02/19 22:10 Ativan PO 0.5 mg BID PRN Administration Anxiety Melatonin 3 mg 11/02/19 08:47 11/03/19 20:29 Melatonin PO 3 mg HS PRN Administration Insomnia Rosuvastatin Calcium 5 mg 11/02/19 21:00 11/03/19 20:28 Crestor PO 5 mg HS ISRA Administration Sodium Chloride 10 ml 11/02/19 09:00 11/04/19 08:57 Flush - Normal Saline IVF 10 ml Q12HR ISRA Administration Trazodone HCl 150 mg 11/02/19 21:00 11/03/19 20:27 Desyrel PO 150 mg HS ISRA Administration - Exam General Appearance: NAD Eye: anicteric sclera ENT: normocephalic atraumatic, moist mucosa Neck: supple, symmetric, no lymphadenopathy Heart: RRR, no murmur, no gallops, no rubs Respiratory: CTAB, no wheezes, no rales, no ronchi, normal chest expansion, no tachypnea Gastrointestinal: soft, normal bowel sounds, no guarding, no rigidity Extremities: no edema Skin: no lesions, no rashes Neurological: cranial nerve grossly intact, no focal deficits. 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 OF INSULIN Status: Acute (3) HTN (hypertension) Code(s): I10 - ESSENTIAL (PRIMARY) HYPERTENSION Status: Acute (4) HLD (hyperlipidemia) Code(s): E78.5 - HYPERLIPIDEMIA, UNSPECIFIED Status: Acute (5) Mood disorder Code(s): F39 - UNSPECIFIED MOOD [AFFECTIVE] DISORDER Status: Acute (6) Sepsis Code(s): A41.9 - SEPSIS, UNSPECIFIED ORGANISM Status: Acute (7) UTI (urinary tract infection) Status: Acute - Plan Plan: medical unit with telemetry stroke unit neurology consultation requested for stroke, recommendations appreciated stroke regimen: -Aggrenox -CAROLYN inhibitor -statin echocardiogram noted for preserved ejection fraction 55% without significant valvular pathology ultrasound carotid neg for hemodynamically significant stenosis MRI brain noted for acute CVA - see report for details IV antibiotics for urinary tract infection urine culture, no growth to date De-escalate to culture and sensitivity as able blood pressure control, adjusting medications daily blood sugar control with long and short acting insulin, responding well to current regimen PT/OT evaluation and treatment DVT prophylaxis G.I. prophylaxis
[2019-11-04] MEDS: traZODone HCl 150 MG TAB PO SCH (21:52)
[2019-11-04] MEDS: Rosuvastatin 5 MG TAB PO SCH (22:02)
[2019-11-05] MEDS: hydrALAZINE 20 MG/ML VIAL SLOW IVP PRN ×2 (02:25→11:23)
[2019-11-05] MEDS: Labetalol HCl 100 MG/20 ML VIAL SLOW IVP PRN ×2 (05:37→17:43)
[2019-11-05] MEDS: HumaLOG 300 UNITS/3 ML VIAL SC PRN ×4 (06:22→21:14)
[2019-11-05] MEDS: Lisinopril 20 MG TAB PO SCH ×2 (08:42→21:12)
[2019-11-05] MEDS: Aggrenox 200-25mg CAP PO SCH (08:42)
[2019-11-05] MEDS: Hydrochlorothiazide 25 MG TAB PO SCH (08:42)
[2019-11-05] MEDS: Carvedilol 3.125 MG TAB PO SCH ×2 (08:42→16:36)
[2019-11-05] MEDS: hydrALAZINE 25 MG TAB PO SCH ×3 (08:43→21:12)
[2019-11-05] MEDS: Famotidine 20 MG TAB PO SCH ×2 (08:43→21:12)
[2019-11-05] MEDS: Insulin Glargine 10 UNITS in Pre-Filled Syringe 1 EACH SC SCH ×2 (09:39→21:12)
--- NOTE | 2019-11-05 11:02 | PDOC.HOSPP ---
- Subjective Subjective: Seen and examined. Clinically improving. Sitting up in the chair eating her breakfast. In no apparent distress. Blood pressure remains difficult control, just medications. Patient has had episodes of hyperglycemia's blood sugars in the 400s, we are not using her long-acting insulin from her home regimen as we do not carry it. Once she goes back to her home regimen her blood sugars will be better controlled. Patient does like to eat diets that is not consistent with carbohydrate restrictions and this is the cause of occasional spikes in blood sugar. - Objective Vital Signs & Weight: Vital Signs (12 hours) Temp Pulse Resp BP BP Pulse Ox 11/05/19 08:43 72 11/05/19 07:46 98.3 F 72 16 202/96 H 92 L 11/05/19 06:20 72 186/87 H 11/05/19 05:37 76 194/91 H 11/05/19 04:00 98.1 F 71 16 198/101 H 93 L 11/05/19 02:25 66 11/05/19 02:23 66 190/107 H 11/04/19 23:59 98.0 F 61 16 96 Weight Weight 240 lb I&O: 11/04/19 11/05/19 11/06/19 06:59 06:59 06:59 Intake Total 1100 820 360 Balance 1100 820 360 Result Diagrams: 11/03/19 04:56 11/03/19 04:56 Additional Labs: Accuchecks 11/05/19 11/04/19 11/04/19 05:34 20:50 16:41 POC Glucose 201 H 426 H 235 H Radiology Reviewed by me: Yes Hospitalist ROS - Review of Systems All other systems reviewed; all pertinent +/- noted in HPI/Subj - Medication Medications: Active Medications Generic Name Dose Route Start Last Admin Trade Name Freq PRN Reason Stop Dose Admin Acetaminophen 650 mg 11/02/19 08:42 11/03/19 19:56 Tylenol PO 650 mg Q4H PRN Administration Headache/Fever/Mild Pain (1-3) Carvedilol 3.125 mg 11/04/19 08:00 11/05/19 08:42 Coreg PO 3.125 mg BID-WM ISRA Administration Famotidine 20 mg 11/02/19 09:00 11/05/19 08:43 Pepcid PO 20 mg BID ISRA Administration Hydralazine HCl 10 mg 11/03/19 17:23 11/05/19 02:25 Apresoline SLOW IVP 10 mg Q4H PRN Administration Hypertension Hydralazine HCl 100 mg 11/05/19 09:00 11/05/19 08:43 Apresoline PO 100 mg TID ISRA Administration Hydrochlorothiazide 25 mg 11/05/19 09:00 11/05/19 08:42 Hydrochlorothiazide PO 25 mg DAILY ISRA Administration Ceftriaxone Sodium 2 gm/ 100 mls @ 200 mls/hr 11/02/19 12:00 11/04/19 11:29 Sodium Chloride IVPB 100 mls 1200 ISRA Administration Insulin Glargine 10 units/ 0.1 mls @ 0 mls/hr 11/02/19 21:00 11/05/19 09:39 Miscellaneous Medication SC 0.1 mls BID ISRA Administration Insulin Human Lispro 0 units 11/02/19 08:46 11/05/19 06:22 Humalog SC 3 unit .MILD SLIDING SCALE PRN Administration Mild Correctional Scale Insulin Human Lispro 0 units 11/02/19 08:46 11/04/19 22:03 Humalog SC 5 unit .BEDTIME SLIDING SC PRN Administration Bedtime Correctional Scale Labetalol HCl 10 mg 11/03/19 17:23 11/05/19 05:37 Normodyne SLOW IVP 10 mg Q4H PRN Administration SBP Greater Than 180 Lisinopril 20 mg 11/05/19 09:00 11/05/19 08:42 Zestril PO 20 mg BID ISRA Administration Lorazepam 0.5 mg 11/02/19 08:39 11/02/19 22:10 Ativan PO 0.5 mg BID PRN Administration Anxiety Melatonin 3 mg 11/02/19 08:47 11/03/19 20:29 Melatonin PO 3 mg HS PRN Administration Insomnia Rosuvastatin Calcium 5 mg 11/02/19 21:00 11/04/19 22:02 Crestor PO 5 mg HS ISRA Administration Sodium Chloride 10 ml 11/02/19 09:00 11/05/19 08:43 Flush - Normal Saline IVF 10 ml Q12HR ISRA Administration Trazodone HCl 150 mg 11/02/19 21:00 11/04/19 21:52 Desyrel PO 150 mg HS ISRA Administration - Exam General Appearance: NAD, awake alert Eye: PERRL ENT: normocephalic atraumatic, moist mucosa Neck: supple, symmetric, no lymphadenopathy Heart: no murmur, no gallops, no rubs Respiratory: CTAB, no wheezes, no rales, no ronchi, normal chest expansion, no tachypnea Gastrointestinal: soft, non-tender, non-distended, no guarding, no rigidity Gastrointestinal - other findings: Obese Extremities: no edema Skin: no rashes Skin - other findings: Dry scabbed LE lesions Neurological: cranial nerve grossly intact, no focal deficits Neurological - other findings: Left deficits have resolved completely Musculoskeletal: no muscle wasting, generalized weakness Psychiatric: normal affect, A&O x 3, flat affect Hosp A/P (1) Acute CVA (cerebrovascular accident) Code(s): I63.9 - CEREBRAL INFARCTION, UNSPECIFIED Status: Acute (2) IDDM (insulin dependent diabetes mellitus) Code(s): E11.9 - TYPE 2 DIABETES MELLITUS WITHOUT COMPLICATIONS; Z79.4 - 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 OF INSULIN Status: Acute (3) HTN (hypertension) Code(s): I10 - ESSENTIAL (PRIMARY) HYPERTENSION Status: Acute (4) HLD (hyperlipidemia) Code(s): E78.5 - HYPERLIPIDEMIA, UNSPECIFIED Status: Acute (5) Mood disorder Code(s): F39 - UNSPECIFIED MOOD [AFFECTIVE] DISORDER Status: Acute (6) Sepsis Code(s): A41.9 - SEPSIS, UNSPECIFIED ORGANISM Status: Acute (7) UTI (urinary tract infection) Status: Acute - Plan Plan: medical unit with telemetry - stroke unit BP meds adjusted again today, once BP better controlled will plan for D/c with home health neurology consultation requested for stroke, recommendations appreciated stroke regimen: -Aggrenox -CAROLYN inhibitor -statin echocardiogram noted for preserved ejection fraction 55% without significant valvular pathology ultrasound carotid neg for hemodynamically significant stenosis MRI brain noted for acute CVA - see report for details IV antibiotics for urinary tract infection, transition to oral on D/c urine culture, no growth to date De-escalate to culture and sensitivity as able blood pressure control, adjusting medications daily blood sugar control with long and short acting insulin, responding well to current regimen PT/OT evaluation and treatment DVT prophylaxis G.I. prophylaxis
[2019-11-05] MEDS: cefTRIAXone\\ROCEPHIN 2 GM in Sodium Chloride 0.9% 100 ML IVPB SCH (11:11)
[2019-11-05] MEDS: Acetaminophen 325 MG TAB PO PRN (14:58)
[2019-11-05] MEDS: Rosuvastatin 5 MG TAB PO SCH (21:12)
[2019-11-05] MEDS: traZODone HCl 150 MG TAB PO SCH (21:12)
[2019-11-06] MEDS: HumaLOG 300 UNITS/3 ML VIAL SC PRN ×4 (06:04→20:55)
[2019-11-06] MEDS: Famotidine 20 MG TAB PO SCH ×2 (08:24→20:57)
[2019-11-06] MEDS: Hydrochlorothiazide 25 MG TAB PO SCH (08:25)
[2019-11-06] MEDS: Lisinopril 20 MG TAB PO SCH ×2 (08:25→20:55)
[2019-11-06] MEDS: Insulin Glargine 10 UNITS in Pre-Filled Syringe 1 EACH SC SCH (08:25)
[2019-11-06] MEDS: Carvedilol 3.125 MG TAB PO SCH ×2 (08:25→20:56)
[2019-11-06] MEDS: Aggrenox 200-25mg CAP PO SCH ×2 (08:25→20:57)
[2019-11-06] MEDS: hydrALAZINE 25 MG TAB PO SCH ×3 (08:28→20:56)
[2019-11-06] MEDS ORDERED: Insulin Glargine 30 UNITS in Pre-Filled Syringe 1 EACH SC SCH (09:15)
[2019-11-06] MEDS ORDERED: Carvedilol 6.25 MG TAB PO SCH (09:15)
[2019-11-06 10:02] LABS: #Eosinphils 0.3 thou/uL (0.0-0.7); #Lymphocytes 2.4 thou/uL (1.20-3.40); #Monocytes 0.6 thou/uL (0.11-0.59); #Neutrophils 6.8 thou/uL (1.40-6.50); %Basophils 0.4 % (0.0-1.0); %Eosinophils 3.2 % (0.0-10.0); %Lymphocytes 23.6 % (21.0-51.0); %Monocytes 5.5 % (0.0-10.0); %Neutrophils 67.3 % (42.0-75.0); Hemoglobin 13.2 g/dL (12.0-16.0); Mean Corpuscular HGB CONC 32.5 g/dL (32.0-36.0); Mean Corpuscular Hemoglobin 30.7 pg (27.0-31.0); Mean Corpuscular Volume 94.6 fL (78.0-98.0); Mean Platelet Volume 8.3 fL (7.4-10.4); Platelet Count 272 thou/uL (130-400); Red Blood Cell (RBC) Count 4.31 mill/uL (4.20-5.40); White Blood Cell (WBC) Count 10.1 thou/uL (4.8-10.8)
[2019-11-06 10:29] LABS: ALT (SGPT) 14 U/L (8-55); AST (SGOT) 11 U/L (5-34); Albumin 3.3 g/dL (3.5-5.0); Alkaline Phosphatase 92 U/L (40-110); Anion Gap 13 mmol/L (10-20); BUN (Urea Nitrogen) 14 mg/dL (9.8-20.1); Bilirubin, Total 0.4 mg/dL (0.2-1.2); Calc. Creatinine Clearance 91 mL/min (70-130); Calcium 8.7 mg/dL (7.8-10.44); Carbon Dioxide 23 mmol/L (22-29); Chloride 102 mmol/L (98-107); Estimated GFR-MDRD 48; Globulin 4.2 g/dL (2.4-3.5); Glucose 292 mg/dL (70-105); Potassium 4.1 mmol/L (3.5-5.1); Protein, Total 7.5 g/dL (6.0-8.3); Sodium 134 mmol/L (136-145)
[2019-11-06] MEDS ORDERED: Amlodipine 5 MG TAB PO SCH ×2 (12:00→16:00)
[2019-11-06] MEDS: cefTRIAXone\\ROCEPHIN 2 GM in Sodium Chloride 0.9% 100 ML IVPB SCH (13:45)
--- NOTE | 2019-11-06 14:53 | PQF ---
[employer] ORACIO Alvarado ROSA CHIDI KONG [id number] CLINICAL DOCUMENTATION IMPROVEMENT CLARIFICATION FORM: ICD-10 Updated PLEASE DO AN ADDENDUM TO THE PROGRESS NOTE WITH ANY DOCUMENTATION UPDATES OR ADDITIONS AND CARRY THROUGH TO DC SUMMARY. THANK YOU. DATE: 11/06/19 ATTN: Dr. Kong Please exercise your independent, professional judgment in responding to the clarification form. Clinical indicators are provided on the bottom of this form for your review Please check appropriate box(s): [ ] Encephalopathy: Type: [ ] Acute [ ] Subacute [ ] Chronic Etiology: [ ] Acute CVA [ ] Metabolic [ ] Septic [ ] Unspecified [ ] in the setting of underlying dementia [ ] Other (please specify) [ ] Transient Alteration of Awareness [ ] Other diagnosis [ ] Unable to determine In addition, please specify: Present on Admission (POA): [ ] Yes [ ] No [ ] Unable to determine For continuity of documentation, please document condition throughout progress notes and discharge summary. Thank You. CLINICAL INDICATORS - SIGNS / SYMPTOMS / LABS / RESULTS AND LOCATION IN EMR Altered mental status / confusion--> 11/03 Neuro([facility]): "Transient confusion". Metabolic abnormaility--> 11/02 bun 21, creat 1.21, GFR 46; 11/03 bun 23, creat 1.07, GFR 53--> 11/06 bun 14, creat 1.17, GFR 48 per labs "UA positive nitrates and bacteria: per 11/02 ED([facility]) RISK FACTORS / RESULTS AND LOCATION IN EMR 11/02 H&P([facility]): "Acute CVA" Infectious process--01/03 H&P([facility]): "Sepsis, UTI" 11/03 Neuro([facility]): "history of autoimmune encephaliitis in 2018" TREATMENTS / RESULTS AND LOCATION IN EMR Neurology consult 11/02 per orders IV antibiotics--> Rocephin 2gm IV 11/02-to date per orders IV fluids--> NS at 100 / per orders (This form is maintained as a part of the permanent medical record) 2014 [employer]. All Rights Reserved Naya Wahl, RN, BSN, CCDS [email or web address]
--- NOTE | 2019-11-06 14:58 | PQF ---
ORACIO GILBERT OBICHIDI [id number] [facility] [place] [id number] CLINICAL DOCUMENTATION IMPROVEMENT CLARIFICATION FORM: ICD-10 Updated PLEASE DO AN ADDENDUM TO THE PROGRESS NOTE WITH ANY DOCUMENTATION UPDATES OR ADDITIONS AND CARRY THROUGH TO DC SUMMARY. THANK YOU. DATE: 11/06/19 ATTN: Dr. Kong Please exercise your independent, professional judgment in responding to the clarification form. Clinical indicators are provided on the bottom of this form for your review Please check appropriate box(s): BMI > 40 with associated diagnosis of: (check one) [ ] Morbid (Severe) Obesity [ ] Due to excess calories [ ] Overweight [ ] Obesity [ ] Other diagnosis [ ] Unable to determine In addition, please specify: Present on Admission (POA): [ ] Yes [ ] No [ ] Unable to Determine For continuity of documentation, please document condition throughout progress notes and discharge summary. Thank You. BMI < 18.5Under weight = 18.5 - 24.9Healthy = 25.0 - 29.9Slightly Overweight = 30.0 - 34.9Obese/Class I = 35.0 - 39.9Severely Obese/Class II = 40.0 and OverMorbidly Obese/Class III CLINICAL INDICATORS - SIGNS / SYMPTOMS / LABS / RESULTS AND LOCATION IN EMR BMI of 43.9 per [facility] RISK FACTORS / RESULTS AND LOCATION IN EMR 11/02 H&P([facility]): "Acute CVA" TREATMENTS / RESULTS AND LOCATION IN EMR PT/OT/HOSPITAL RECEIVING CLERK orders 11/02 (This form is maintained as a part of the permanent medical record) 2014 [employer] a Division [employer] All Rights Reserved Naya Wahl, RN, BSN, CCDS [email or web address]
--- NOTE | 2019-11-06 15:05 | PQF ---
ORACIO GILBERT OBICHIDI [id number] [facility] [place]-219 [id number] CLINICAL DOCUMENTATION IMPROVEMENT CLARIFICATION FORM: ICD-10 Updated PLEASE DO AN ADDENDUM TO THE PROGRESS NOTE WITH ANY DOCUMENTATION UPDATES OR ADDITIONS AND CARRY THROUGH TO DC SUMMARY. THANK YOU. DATE: 11/06/19 ATTN: Dr. Kong Please exercise your independent, professional judgment in responding to the clarification form. Clinical indicators are provided on the bottom of this form for your review Please check appropriate box(s): [ ] Acute Renal Failure (ARF) / Acute Kidney Injury (EDER) [ ] Other Etiology or underlying conditions related to the diagnosis of ARF/ EDER: [ ] Other: [ ] Acute Renal insufficiency [ ] Other diagnosis [ ] Unable to determine In addition, please specify: Present on Admission (POA): [ ] Yes [ ] No [ ] Unable to determine National Kidney Foundation Guidelines for CKD Staging Stage I Kidney damage with normal or increased GFRGFR > 90 Stage IIKidney damage with mildly decreased GFRGFR 60-89 Stage III Kidney damage with moderately decreased GFRGFR 30-59 Stage IVKidney damage with severely decreased GFRGFR 16-29 Stage VKidney failureGFR<15 ESRDEnd Stage Renal DiseaseOn dialysis Acute Renal Failure/Acute Kidney Failure defined as: Increases in SCr by (>) 0.3 mg/dl within 48 hours OR- Increases in SCr by (>) 1.5 times baseline, known or presumed to have occurred within the prior 7 days OR- Urine volume < 0.5 ml/kg/hour for 6 hours (KDIGO supplement 2012 for RIFLE/MARION criteria) For continuity of documentation, please document condition throughout progress notes and discharge summary. Thank You. CLINICAL INDICATORS - SIGNS / SYMPTOMS / LABS / RESULTS AND LOCATION IN MR Abnormal labs (BUN, creatinine, low GFR)--> 12/5 bun 21, creat 1.21, GFR 46; 11/03 bun 23, creat 1.07, GFR 53--> 11/06 bun 14, creat 1.17, GFR 48 per labs RISK FACTORS / RESULTS AND LOCATION IN MR Dehydration--> "UTI, Acute CVA, Sepsis" per 11/02 H&P(Oseas) Use of CAROLYN inhibitors--> Lisinopril 40mg po daily 11/02-11/04; 11/05-date Lisinopril 20mg BID per orders TREATMENTS / RESULTS AND LOCATION IN MR IV fluids--> NS at 100 11/02 per orders BMP 11/02, 11/03, 11/06 per orders (This form is maintained as a part of the permanent medical record) 2014 [employer]. All Rights Reserved Naya Wahl, RN, BSN, CCDS [email or web address]
--- NOTE | 2019-11-06 17:41 | PDOC.HOSPP ---
- Subjective Encounter Date: 11/06/19 Encounter Time: 11:31 Subjective: 59 y.o female with DM, HTN, HLD, seizure disorder, autoimmune encephalitis and prior CVA, admitted with acute onset of dizziness and confusion associated with left sided weakness. Also complained of urinary frequency and urgency and was started on antibiotics for UTI. Imaging showed acute lacunar infarctions. Feeling better. Ambulating with PT. - Objective Vital Signs & Weight: Vital Signs (12 hours) Temp Pulse Pulse Pulse Resp BP BP 11/06/19 15:35 98.4 F 76 16 11/06/19 14:49 11/06/19 13:36 77 11/06/19 11:42 99.3 F 81 16 11/06/19 10:05 80 81 189/80 H 11/06/19 09:21 179/86 H 11/06/19 09:03 90 11/06/19 08:28 90 11/06/19 08:25 205/103 H 11/06/19 07:33 98.3 F 81 18 BP BP BP Pulse Ox 11/06/19 15:35 206/102 H 93 L 11/06/19 14:49 163/92 H 11/06/19 13:36 154/94 H 11/06/19 11:42 176/100 H 93 L 11/06/19 10:05 188/82 H 11/06/19 09:21 11/06/19 09:03 165/91 H 11/06/19 08:28 11/06/19 08:25 11/06/19 07:33 202/96 H 93 L Weight Weight 240 lb I&O: 11/05/19 11/06/19 11/07/19 06:59 06:59 06:59 Intake Total 820 940 Output Total 600 Balance 820 340 Result Diagrams: 11/06/19 09:17 11/06/19 09:17 Additional Labs: Accuchecks 11/06/19 11/06/19 11/06/19 16:51 10:52 06:02 POC Glucose 225 H 294 H 240 H 11/05/19 19:35 POC Glucose 346 H Hospitalist ROS - Medication Medications: Active Medications Generic Name Dose Route Start Last Admin Trade Name Freq PRN Reason Stop Dose Admin Acetaminophen 650 mg 11/02/19 08:42 11/05/19 14:58 Tylenol PO 650 mg Q4H PRN Administration Headache/Fever/Mild Pain (1-3) Amlodipine Besylate 5 mg 11/06/19 16:00 11/06/19 16:15 Norvasc PO 11/06/19 18:00 5 mg NOW ISRA Administration Dipyridamole/Aspirin 1 cap 11/06/19 09:00 11/06/19 08:25 Aggrenox PO 1 cap BID ISRA Administration Famotidine 20 mg 11/02/19 09:00 11/06/19 08:24 Pepcid PO 20 mg BID ISRA Administration Hydralazine HCl 10 mg 11/03/19 17:23 11/05/19 11:23 Apresoline SLOW IVP 10 mg Q4H PRN Administration Hypertension Hydralazine HCl 100 mg 11/05/19 09:00 11/06/19 16:15 Apresoline PO 100 mg TID ISRA Administration Hydrochlorothiazide 25 mg 11/05/19 09:00 11/06/19 08:25 Hydrochlorothiazide PO 25 mg DAILY ISRA Administration Ceftriaxone Sodium 2 gm/ 100 mls @ 200 mls/hr 11/02/19 12:00 11/06/19 13:45 Sodium Chloride IVPB 100 mls 1200 ISRA Administration Insulin Human Lispro 0 units 11/02/19 08:46 11/06/19 11:16 Humalog SC 4 unit .MILD SLIDING SCALE PRN Administration Mild Correctional Scale Insulin Human Lispro 0 units 11/02/19 08:46 11/05/19 21:14 Humalog SC 4 unit .BEDTIME SLIDING SC PRN Administration Bedtime Correctional Scale Labetalol HCl 10 mg 11/03/19 17:23 11/05/19 17:43 Normodyne SLOW IVP 10 mg Q4H PRN Administration SBP Greater Than 180 Lisinopril 20 mg 11/05/19 09:00 11/06/19 08:25 Zestril PO 20 mg BID ISRA Administration Lorazepam 0.5 mg 11/02/19 08:39 11/02/19 22:10 Ativan PO 0.5 mg BID PRN Administration Anxiety Melatonin 3 mg 11/02/19 08:47 11/03/19 20:29 Melatonin PO 3 mg HS PRN Administration Insomnia Rosuvastatin Calcium 5 mg 11/02/19 21:00 11/05/19 21:12 Crestor PO 5 mg HS ISRA Administration Sodium Chloride 10 ml 11/02/19 09:00 11/06/19 08:31 Flush - Normal Saline IVF 10 ml Q12HR ISRA Administration Trazodone HCl 150 mg 11/02/19 21:00 11/05/19 21:12 Desyrel PO 150 mg HS ISRA Administration - Exam General Appearance: awake alert General - other findings: obese Eye: anicteric sclera ENT: normocephalic atraumatic Neck: symmetric, no JVD Heart: RRR Respiratory: no wheezes, no rales, no ronchi, normal chest expansion Gastrointestinal: soft, non-tender, non-distended, normal bowel sounds Gastrointestinal - other findings: morbidly obese Extremities: no cyanosis Neurological: cranial nerve grossly intact, no focal deficits Musculoskeletal: generalized weakness Psychiatric: A&O x 3 Hosp A/P (1) Acute CVA (cerebrovascular accident) Code(s): I63.9 - CEREBRAL INFARCTION, UNSPECIFIED Status: Acute (2) Morbid obesity Code(s): E66.01 - MORBID (SEVERE) OBESITY DUE TO EXCESS CALORIES Status: Acute (3) Autoimmune encephalitis Code(s): G04.81 - OTHER ENCEPHALITIS AND ENCEPHALOMYELITIS Status: Acute (4) Seizure disorder Code(s): G40.909 - EPILEPSY, UNSP, NOT INTRACTABLE, WITHOUT STATUS EPILEPTICUS Status: Acute (5) Mild mitral regurgitation Code(s): I34.0 - NONRHEUMATIC MITRAL (VALVE) INSUFFICIENCY Status: Acute (6) HLD (hyperlipidemia) Code(s): E78.5 - HYPERLIPIDEMIA, UNSPECIFIED Status: Acute (7) HTN (hypertension) Code(s): I10 - ESSENTIAL (PRIMARY) HYPERTENSION Status: Acute (8) IDDM (insulin dependent diabetes mellitus) Code(s): E11.9 - TYPE 2 DIABETES MELLITUS WITHOUT COMPLICATIONS; Z79.4 - PROCESS STRIPPER (CURRENT) USE OF INSULIN Status: Acute (9) Mood disorder Code(s): F39 - UNSPECIFIED MOOD [AFFECTIVE] DISORDER Status: Acute (10) Sepsis Code(s): A41.9 - SEPSIS, UNSPECIFIED ORGANISM Status: Acute (11) UTI (urinary tract infection) Status: Acute - Plan Increase coreg to 12.5 and start amlodipine 10 mg daily for uncontrolled BP increase lantus to 40 units daily. continue [id number] scale insulin. Continue antiplatelet and statin. continue PT for discharge home with home health once BP is better controlled
[2019-11-06] MEDS: traZODone HCl 150 MG TAB PO SCH (20:55)
[2019-11-06] MEDS: Rosuvastatin 5 MG TAB PO SCH (20:57)
[2019-11-07] MEDS: Melatonin 3 MG TAB PO PRN (00:26)
[2019-11-07] MEDS: HumaLOG 300 UNITS/3 ML VIAL SC PRN ×2 (06:23→12:07)
[2019-11-07] MEDS ORDERED: Amlodipine 10 MG TAB PO SCH (09:00)
[2019-11-07] MEDS ORDERED: Insulin Glargine 40 UNITS in Pre-Filled Syringe 1 EACH SC SCH (09:00)
[2019-11-07] MEDS: hydrALAZINE 25 MG TAB PO SCH ×2 (09:24→16:01)
[2019-11-07] MEDS: Famotidine 20 MG TAB PO SCH (09:25)
[2019-11-07] MEDS: Hydrochlorothiazide 25 MG TAB PO SCH (09:25)
[2019-11-07] MEDS: Carvedilol 3.125 MG TAB PO SCH (09:25)
[2019-11-07] MEDS: Lisinopril 20 MG TAB PO SCH (09:25)
[2019-11-07] MEDS: Aggrenox 200-25mg CAP PO SCH (09:25)
[2019-11-07] MEDS: cefTRIAXone\\ROCEPHIN 2 GM in Sodium Chloride 0.9% 100 ML IVPB SCH (12:06)
[2019-11-07 15:03] VITALS: TEMP 99
[2019-11-07 16:01] VITALS: BP 138/86
--- NOTE | 2019-11-08 09:20 | DIS ---
DATE OF ADMISSION: 11/02/2019 DATE OF DISCHARGE: 11/07/2019 DISCHARGE DIAGNOSES: 1. Urinary tract infection. 2. Stroke. 3. Uncontrolled blood pressure. 4. Diabetes, uncontrolled. 5. High cholesterol. 6. Documented history of seizures. 7. Documented history of mood disorder. HISTORY OF PRESENT ILLNESS AND HOSPITAL COURSE: This is a 59-year-old female patient who presented with left-sided weakness and urinary tract infection symptoms, transferred from [place] for higher level of care. In our hospital, her left-sided weakness resolved. Family stated that she is at her baseline. She was answering questions appropriately. Family reported that she is no longer needing any psychiatric medications for her schizophrenia. She had a good diabetes control on her home regimen. Unfortunately, she we did not have all her home regimen medication. For that reason, we used Lantus and while she was in the hospital, her sugar was difficult to control. Initially, her white count was elevated. She was started on Rocephin for urinary tract infection. Her blood pressure was difficult to control, so amlodipine 10 mg was added. It is known that she was on that medication which caused her increased lower extremity edema, but since her blood pressure was tough to control, we started that medication also. She was started on Coreg 12.5 twice a day knowing that she was on metoprolol at home. Also, hydralazine was added. Her blood pressure improved and today her blood pressure is acceptable, but she needs to follow up with her primary care physician for further management, I did explain that to her. During her stay, she did undergo an MRI of the brain that showed stroke. She was evaluated by Physical Therapy, she was started on Aggrenox. Her echocardiogram showed a preserved ejection fraction of 55%, ultrasound of the carotids negative for hemodynamically significant stenosis, her urine culture showed no growth. The patient has been stable for the past 24 hours. Her blood pressure has been very well controlled with a new regimen. Of note, we had to add hydralazine and amlodipine because of her borderline heart rate. We had to make adjustments in her beta kiersten therapy because of the heart rate as well. She will be discharged today as her daughter is at the bedside and ready to take her. She is to go back on her insulin regimen since that is was working for her, also to follow up with her primary care physician in a week, also to follow up with our neurologist who saw her while she was here, Dr. Patricio Garcia. TIME SPENT: More than 30 minutes was spent to discharge the patient. Job ID: [id number]
== END 2019-11-07 18:40 | disposition home or self-care (01) | DRG 64 ==
LOC: ERS 00:45 → T4-B 03:40 → 2SE 16:15
PROVIDERS: ADMIT Internal Medicine; ATTEND Internal Medicine
DX: I63.9 Cerebral infarction, unspecified (principal); A41.9 Sepsis, unspecified organism; N39.0 Urinary tract infection, site not specified; Z68.41 Body mass index [BMI] 40.0-44.9, adult; G81.94 Hemiplegia, unspecified affecting left nondominant side; E11.9 Type 2 diabetes mellitus without complications; I10 Essential (primary) hypertension; E78.5 Hyperlipidemia, unspecified; F39 Unspecified mood [affective] disorder; G40.909 Epilepsy, unspecified, not intractable, without status epilepticus; E66.01 Morbid (severe) obesity due to excess calories; I34.0 Nonrheumatic mitral (valve) insufficiency; R29.701 NIHSS score 1; Z79.4 Long term (current) use of insulin
CPT/HCPCS: 36415; 36416; 70551; 80048; 80053; 85025; 87086; 93306; 93880; 99285; J0360; J0696; J1815; J3490